=== PATIENT | female | born 1970 | race Caucasian/White ===

== ENCOUNTER 2020-01-21 05:40 | Emergency (ER) | payer BC ==
[2020-01-21] MEDS ORDERED: Lidocaine 1% 20 ML MDV ONE (05:43)
== END 2020-01-21 06:04 | disposition home or self-care (01) ==
LOC: MADERS 05:40
DX: T16.1XXA Foreign body in right ear, initial encounter (principal); E03.9 Hypothyroidism, unspecified; F32.9 Major depressive disorder, single episode, unspecified
CPT/HCPCS: 69200; J2001